=== PATIENT | male | born 1965 | race Asian ===

== ENCOUNTER 2017-04-15 09:51 | Day surgery (SDC) | payer OTHER ==
[2017-04-15] MEDS ORDERED: MIDAZOLAM 1 MG/ML 2 ML INJ ×2 (12:24)
[2017-04-15] MEDS ORDERED: FENTAnyl 50 MCG/ML VIAL (12:24)
== END 2017-04-15 13:01 | disposition home or self-care (01) ==
LOC: GIL 09:51
DX: Z12.11 Encounter for screening for malignant neoplasm of colon (principal); K64.8 Other hemorrhoids; E11.9 Type 2 diabetes mellitus without complications
CPT/HCPCS: 45378; 82962